=== PATIENT | female | born 1965 | race Two or more races ===

== ENCOUNTER 2024-04-19 12:21 | Inpatient (IN) | payer OTHER ==
[~2024-04-19] VITALS: Ht 152.4 cm; Wt 159.7 kg
[~2024-04-19 12:21] MED LIST: ANTIVERT25 M1 PO; CEFADROXIL500 MG PO; CIPRO500 MG PO; IRBESARTAN75 MG PO; JANUMET 50-501 UDTAB PO; LIPO-FLAVONOID1 EACH PO; LOMOTIL; MECLIZINE HCL25 MG PO; NORVASC10 MG PO; OZEMPIC2 MG/0.75 SUBCUTANEO; SYNTHROID125 MCG PO; SYNTHROID137 MCG PO; SYNTHROID75 MCG; TENORMIN25 MG; ULTRACET PO
[2024-04-19] MEDS ORDERED: GLIPIZIDE XL5 MG (13:20)
[2024-04-19] MEDS ORDERED: TRIJARDY XR 101 EACH PO (13:20)
[2024-04-19] MEDS ORDERED: PROTONIX20 MG PO (13:21)
[2024-04-19] MEDS ORDERED: CARAFATE1 GM (13:21)
--- NOTE | 2024-04-19 13:22 | NUR ---
PTE REFIEFE TOS Y [facility] DESDE HAC VARIOS RENE. SE LE KADIE S/V Y SE UBICA EN ABHINAV DE ESPERA.
[2024-04-19] MEDS ORDERED: IPRATROPIUM/ALBUTEROL SULFATE 3 ML AMPUL.NEB IH SCH (16:30)
--- NOTE | 2024-04-19 16:35 | NUR ---
SE ORIENTA PTE,REFIERE ACEPTAR. SE COELCTAN MUESTRAS DE LAB BAJO MEDIDAS ASEPTICAS. PEND A REALIZAR TERAPIAS
[2024-04-19 16:43] LABS: HEMATOCRIT 43.3 % (36.0-45.00); HEMOGLOBIN 14.9 g/dL (12.0-15.00); MEAN CORPUSCULAR HEMOGLOBIN 31.1 pg (27.00-32.0); MEAN CORPUSCULAR HGB CONC 34.5 g/dl (32.0-36.0); PLATELET COUNT 276 K/uL (150-450); RED CELL DISTRIBUTION WIDTH 13.9 % (11.5-14.5)
[2024-04-19] MEDS ORDERED: IPRATROPIUM/ALBUTEROL SULFATE 3 ML AMPUL.NEB IH ONE (17:29)
[2024-04-19] MEDS ORDERED: GILTUSS COUGH-118 M1 PO (19:27)
[2024-04-19] MEDS ORDERED: METHYLPREDNISOLONE SOD SUCC 125 MG VIAL IV ONE (19:45)
[2024-04-19] MEDS ORDERED: MAGNESIUM SULFATE IN WATER 50 ML IV ONE (19:45)
[2024-04-19] MEDS ORDERED: METHYLPREDNISOLONE SOD SUCC 125 MG VIAL ONE (20:11)
--- NOTE | 2024-04-19 20:30 | NUR ---
SE CANALIZA Y SE ADMINISTRA MEDS JAI ORDEN MEDICA
[2024-04-19] MEDS ORDERED: MONTELUKAST SODIUM 10 MG TABLET PO SCH (20:50)
[2024-04-19] MEDS ORDERED: 0.9 % SODIUM CHLORIDE 1,000 ML IV SCH (21:00)
[2024-04-19] MEDS ORDERED: IPRATROPIUM BROMIDE 0.5 MG/2.5 ML AMPUL.NEB IH SCH (21:00)
[2024-04-19] MEDS ORDERED: DEXTROSE 50 % IN WATER 0.5 G/ML DISP.SYRIN IV PRN (21:00)
[2024-04-19] MEDS ORDERED: INSULIN LISPRO 1,000 UNIT/10 ML UNITS SUBCUTANEO PRN (21:00)
[2024-04-19] MEDS ORDERED: LEVALBUTEROL HCL 1.25 MG/3 ML SOLUTION IH SCH (21:00)
[2024-04-19] MEDS ORDERED: ACETAMINOPHEN 500 MG GEL..CAP PO PRN (21:00)
[2024-04-19] MEDS ORDERED: GUAIFEN/DEXTROMETHORPHAN/PE 10 ML BLIST.PACK PO SCH (21:00)
[2024-04-19] MEDS ORDERED: GUAIFEN/DEXTROMETHORPHAN/PE 10 ML BLIST.PACK PO ONE (21:04)
[2024-04-19] MEDS ORDERED: LEVALBUTEROL HCL 1.25 MG/3 ML SOLUTION IH ONE (21:39)
[2024-04-19] MEDS ORDERED: IPRATROPIUM BROMIDE 0.5 MG/2.5 ML AMPUL.NEB IH ONE (21:39)
[2024-04-19 22:07] LABS: URINE APPEARANCE Cloudy; URINE BILIRRUBIN Negative (NEGATIVE); URINE BLOOD Negative; URINE COLOR Yellow; URINE KETONE Negative (NEGATIVE); URINE LEUKOCYTE Negative; URINE NITRATE Negative; URINE PROTEIN Negative (NEGATIVE); URINE UROBILINOGEN 0.2 E.U./dl
[2024-04-19 22:10] LABS: URINE BACTERIA 253.2 uL (0.0-1933); URINE EPITHELIAL CELLS 45.5 uL (0.0-38.8); URINE RBC 4.4 uL (0.0-20.8); URINE WBC 68.5 uL (0.0-23.2)
[2024-04-19 22:14] LABS: ABG PH 7.418 (7.35-7.45); ABG PO2 81.1 mmHg (80-100); ABG pCO2 38.2 mmHg (35-45); BASE EXCESS -0.1 mmol/l; BICARBONATE 24.1 mmol/l (23-25); SaO2 96.1 %; Tco2 25.3 mmol/l
[2024-04-19 22:14] LABS: URINE GLUCOSE >=1000 MG/DL (NEGATIVE)
[2024-04-19 22:15] LABS: allen test SATISFACTORY; o2 21 %; puncture site RADIAL LEFT
[2024-04-19 22:23] LABS: INR < 0.93; PARTIAL THROMBOPLASTIN TIME 23.3 SECONDS (22.0-34.0); PROTHROMBIN TIME 9.6 SECONDS (9.0-11.5)
[2024-04-19 22:26] LABS: ALBUMIN 3.6 gm/dL (3.4-5.0); BILIRUBIN TOTAL 0.55 mg/dL (0.3-1.2); CALCIUM 9.4 mg/dL (8.5-10.1); CREATININE SERUM 0.83 mg/dL (0.55-1.02); GFR 69.89; GLOBULINA 3.3 G/DL (2.4-3.5); POTASSIUM 3.35 mEq/L (3.5-5.1); TOTAL PROTEIN 6.9 gm/dL (6.4-8.2)
[2024-04-19 23:41] VITALS: BP 128/77; O2SAT 95
[2024-04-20] MEDS ORDERED: METHYLPREDNISOLONE SOD SUCC 40 MG VIAL IV SCH ×2 (01:00→18:00)
[2024-04-20] MEDS ORDERED: LEVOTHYROXINE SODIUM 125 MCG TABLET PO SCH (06:00)
[2024-04-20] MEDS ORDERED: AZITHROMYCIN 500 MG VIAL IV ONE (08:39)
[2024-04-20] MEDS ORDERED: ENOXAPARIN SODIUM 40 MG/0.4 ML SYRINGE SUBCUTANEO SCH (09:00)
[2024-04-20] MEDS ORDERED: CEFTRIAXONE SODIUM 2,000 MG in 0.9 % SODIUM CHLORIDE 100 ML IV SCH (09:00)
[2024-04-20] MEDS ORDERED: FAMOTIDINE/PF 20 MG in 0.9 % SODIUM CHLORIDE 8 ML IV PUSH SCH (09:00)
[2024-04-20] MEDS ORDERED: AZITHROMYCIN 500 MG in DEXTROSE 5 % IN WATER 250 ML IV SCH (09:00)
[2024-04-20] MEDS ORDERED: AZITHROMYCIN 500 MG VIAL IV SCH (09:00)
[2024-04-20] MEDS ORDERED: IRBESARTAN 75 MG TABLET PO SCH (09:00)
[2024-04-20 09:01] VITALS: BP 135/72; O2SAT 98
[2024-04-20] MEDS ORDERED: ONDANSETRON HCL 2 MG/ML VIAL IV PRN (14:30)
[2024-04-20 17:04] VITALS: BP 170/76; O2SAT 97
[2024-04-20] MEDS ORDERED: INSULIN GLARGINE,HUM.REC.ANLOG 1,000 UNITS/10 ML UNITS SUBCUTANEO STA (21:06)
[2024-04-21 02:02] VITALS: BP 152/81; O2SAT 95
[2024-04-21] MEDS ORDERED: INSULIN LISPRO 1,000 UNIT/10 ML UNITS SUBCUTANEO STA (08:07)
[2024-04-21 08:14] LABS: CALCIUM 8.9 mg/dL (8.5-10.1); CREATININE SERUM 0.69 mg/dL (0.55-1.02); GFR 86.49; POTASSIUM 4.21 mEq/L (3.5-5.1)
[2024-04-21 08:18] LABS: TSH 0.024 uIU/mL (0.358-3.74)
[2024-04-21] MEDS ORDERED: INSULIN GLARGINE,HUM.REC.ANLOG 1,000 UNITS/10 ML UNITS SUBCUTANEO SCH ×2 (09:00→21:00)
[2024-04-21 10:26] VITALS: BP 122/68; O2SAT 96
[2024-04-21] MEDS ORDERED: INSULIN LISPRO 1,000 UNIT/10 ML UNITS SUBCUTANEO SCH (12:00)
[2024-04-21 17:11] VITALS: BP 130/69; O2SAT 96
[2024-04-22 00:58] VITALS: BP 150/80; O2SAT 96
[2024-04-22 08:00] VITALS: BP 117/67; BP 160/80; O2SAT 97; O2SAT 98
[2024-04-22] MEDS ORDERED: METHYLPREDNISOLONE SOD SUCC 40 MG VIAL IV SCH (12:00)
[2024-04-22] MEDS ORDERED: BENZONATATE 200 MG CAPSULE PO PRN (16:15)
[2024-04-22 17:16] VITALS: BP 174/91; O2SAT 96
[2024-04-22] MEDS ORDERED: LEVALBUTEROL HCL 1.25 MG/3 ML SOLUTION IH SCH (21:00)
[2024-04-22] MEDS ORDERED: INSULIN GLARGINE,HUM.REC.ANLOG 1,000 UNITS/10 ML UNITS SUBCUTANEO SCH (21:00)
[2024-04-23 02:45] VITALS: BP 205/101; O2SAT 96
[2024-04-23 08:49] VITALS: BP 135/75; O2SAT 98
[2024-04-23] MEDS ORDERED: METHYLPREDNISOLONE SOD SUCC 40 MG VIAL IV SCH (13:00)
[2024-04-23 15:35] VITALS: BP 147/84; O2SAT 98
[2024-04-23] MEDS ORDERED: METHYLPREDNISOLONE SOD SUCC 125 MG VIAL IV SCH (21:00)
[2024-04-24 02:49] VITALS: BP 145/75; O2SAT 98
[2024-04-24 10:36] VITALS: BP 175/83
[2024-04-24 18:29] VITALS: BP 199/86
[2024-04-25 02:26] VITALS: BP 146/79; O2SAT 97
[2024-04-25] MEDS ORDERED: INSULIN LISPRO 1,000 UNIT/10 ML UNITS SUBCUTANEO SCH (08:00)
[2024-04-25] MEDS ORDERED: IRBESARTAN 150 MG TABLET PO SCH (09:00)
[2024-04-25 09:25] VITALS: BP 157/85; O2SAT 98
[2024-04-25] MEDS ORDERED: CLOTRIMAZOLE 10 MG TROCHE MM SCH (12:00)
[2024-04-25] MEDS ORDERED: METHYLPREDNISOLONE SOD SUCC 40 MG VIAL IV SCH ×2 (13:00→21:00)
[2024-04-25 19:01] VITALS: BP 170/77
[2024-04-26 01:59] VITALS: BP 141/75
[2024-04-26 08:41] VITALS: BP 144/77
[2024-04-26] MEDS ORDERED: INSULIN LISPRO 1,000 UNIT/10 ML UNITS SUBCUTANEO SCH (12:00)
[2024-04-26 19:29] VITALS: BP 142/82; O2SAT 97
[2024-04-26] MEDS ORDERED: INSULIN GLARGINE,HUM.REC.ANLOG 1,000 UNITS/10 ML UNITS SUBCUTANEO SCH (21:00)
[2024-04-27 00:48] VITALS: BP 200/100; O2SAT 98
[2024-04-27 00:57] VITALS: BP 158/83; O2SAT 98
[2024-04-27 08:38] VITALS: BP 149/79
[2024-04-27] MEDS ORDERED: METHYLPREDNISOLONE SOD SUCC 40 MG VIAL IV SCH (17:00)
[2024-04-27 19:02] VITALS: BP 148/74
[2024-04-27] MEDS ORDERED: INSULIN GLARGINE,HUM.REC.ANLOG 1,000 UNITS/10 ML UNITS SUBCUTANEO SCH (21:00)
[2024-04-27] MEDS ORDERED: BUDESONIDE 0.5 MG/2 ML AMPUL.NEB IH SCH (21:00)
[2024-04-28 02:17] VITALS: BP 146/90; O2SAT 98
[2024-04-28] MEDS ORDERED: INSULIN LISPRO 1,000 UNIT/10 ML UNITS SUBCUTANEO SCH (08:00)
[2024-04-28 10:04] VITALS: BP 118/69; O2SAT 97
[2024-04-28 12:56] LABS: ABG PH 7.515 (7.35-7.45); ABG pCO2 36.4 mmHg (35-45)
[2024-04-28 12:58] LABS: ABG PO2 59.8 mmHg (80-100); BASE EXCESS 5.7 mmol/l; BICARBONATE 28.7 mmol/l (23-25); SaO2 93.6 %; Tco2 29.8 mmol/l; o2 21 %
[2024-04-28 13:04] LABS: allen test SATISFACTORY; puncture site RADIAL RIGHT
[2024-04-28] MEDS ORDERED: METHYLPREDNISOLONE SOD SUCC 125 MG VIAL IV SCH (17:00)
[2024-04-28] MEDS ORDERED: DOCUSATE CALCIUM 240 MG CAPSULE PO SCH (17:00)
[2024-04-28 17:53] VITALS: BP 151/85; O2SAT 96
[2024-04-29 01:17] VITALS: BP 144/89; O2SAT 99
[2024-04-29] MEDS ORDERED: CEFTRIAXONE SODIUM 2,000 MG in 0.9 % SODIUM CHLORIDE 100 ML IV SCH (09:06)
[2024-04-29 10:10] VITALS: BP 148/80; O2SAT 99
[2024-04-29] MEDS ORDERED: INSULIN LISPRO 1,000 UNIT/10 ML UNITS SUBCUTANEO SCH (12:00)
[2024-04-29] MEDS ORDERED: PANTOPRAZOLE SODIUM 40 MG TABLET.DR PO STA (12:50)
[2024-04-29] MEDS ORDERED: METHYLPREDNISOLONE SOD SUCC 40 MG VIAL IV SCH (17:00)
[2024-04-29 18:15] VITALS: BP 142/86; O2SAT 98
[2024-04-29] MEDS ORDERED: INSULIN GLARGINE,HUM.REC.ANLOG 1,000 UNITS/10 ML UNITS SUBCUTANEO SCH (21:00)
[2024-04-30 01:07] VITALS: BP 127/85; O2SAT 97
[2024-04-30 08:56] VITALS: BP 126/72; O2SAT 98
[2024-04-30] MEDS ORDERED: PANTOPRAZOLE SODIUM 40 MG TABLET.DR PO SCH (09:00)
== END 2024-04-30 13:01 | disposition home or self-care (01) | DRG 202 ==
LOC: ER 12:23 → MEDJ 20:53
PROVIDERS: General Practice; Internal Medicine; Internal Medicine Endocrinology, Diabetes & Metabolism; Preventive Medicine Public Health & General Preventive Medicine; ADMIT Internal Medicine; ATTEND Internal Medicine
PROC: BW24ZZZ Computerized Tomography (CT Scan) of Chest and Abdomen (ICD-10-PCS; principal; 2024-04-23)
DX: J45.41 Moderate persistent asthma with (acute) exacerbation (principal); J44.1 Chronic obstructive pulmonary disease with (acute) exacerbation; R09.02 Hypoxemia; E03.9 Hypothyroidism, unspecified; I10 Essential (primary) hypertension; E11.65 Type 2 diabetes mellitus with hyperglycemia; Z79.4 Long term (current) use of insulin

== ENCOUNTER 2024-07-05 13:29 | Outpatient (CLI) | payer OTHER ==
[~2024-07-05 13:29] MED LIST changes: +CARAFATE1 GM; +GILTUSS COUGH-118 M1 PO; +GLIPIZIDE XL5 MG; +PROTONIX20 MG PO; +TRIJARDY XR 101 EACH PO
== END 2024-07-05 13:34 | disposition home or self-care (01) ==
LOC: TOM 13:29
PROVIDERS: ATTEND Internal Medicine Pulmonary Disease
DX: R06.02 Shortness of breath (principal)

== ENCOUNTER → 2024-09-19 | Emergency (ER) | payer OTHER ==
[~2024-09-19] VITALS: Ht 157.5 cm; Wt 81.6 kg
[~2024-09-19] MED LIST changes: +CEFTRIAXONE SODIUM 1,000 MG VIAL IM STA; +CEFTRIAXONE SODIUM 1,000 MG VIAL ONE; +CRESTOR40 MG; +DIPHTH,PERTUSS(ACELL),TET VAC 0.5 ML SYRINGE IM ONE; +GLIMEPIRIDE1 M1 PO; +TETANUS & DIPHTHERIA TOX,ADULT 0.5 ML VIAL IM STA; +[UNRECOGNIZED DRUG - OTHER]; +[UNRECOGNIZED DRUG - OTHER]
== END | disposition home or self-care (01) ==
LOC: ER 18:03
DX: S81.852A Open bite, left lower leg, initial encounter (principal); S81.851A Open bite, right lower leg, initial encounter; W55.01XA Bitten by cat, initial encounter; Y93.89 Activity, other specified; Y92.098 Other place in other non-institutional residence as the place of occurrence of the external cause; Y99.8 Other external cause status
CPT/HCPCS: 90471; 90714; J1670

== ENCOUNTER 2024-11-29 14:55 | Emergency (ER) | payer OTHER ==
[~2024-11-29] VITALS: Ht 154.9 cm; Wt 62.1 kg
[~2024-11-29 14:55] MED LIST changes: -CEFTRIAXONE SODIUM 1,000 MG VIAL IM STA; -CEFTRIAXONE SODIUM 1,000 MG VIAL ONE; -DIPHTH,PERTUSS(ACELL),TET VAC 0.5 ML SYRINGE IM ONE; -TETANUS & DIPHTHERIA TOX,ADULT 0.5 ML VIAL IM STA
[2024-11-29] MEDS ORDERED: KETOROLAC TROMETHAMINE 60 MG VIAL IM ONE (16:30)
[2024-11-29 16:36] LABS: BASO % 0.8 % (0.1-1.2); EOS # 0.23 (0.04-0.54); EOS % 3.0 % (0.7-7.0); LYMPH # 1.94 (1.18-3.74); LYMPH % 25.6 % (19.3-53.1); MEAN PLATELET VOLUME 9.50 fl (9.4-12.4); MONO # 0.44 (0.24-0.82); MONO % 5.8 % (4.7-12.5); NEUT # 4.89 (1.56-6.13); NEUT % 64.5 % (34.0-71.1); RED CELL DISTRIBUTION WIDTH 14.3 % (11.6-14.4)
[2024-11-29 16:46] LABS: URINE APPEARANCE Cloudy; URINE BILIRRUBIN Negative (NEGATIVE); URINE BLOOD Negative; URINE COLOR Yellow; URINE KETONE Negative (NEGATIVE); URINE LEUKOCYTE Small; URINE NITRATE Negative; URINE PROTEIN Negative (NEGATIVE); URINE UROBILINOGEN 0.2 E.U./dl
[2024-11-29 16:50] LABS: URINE BACTERIA 1892.2 uL (0.0-1933); URINE EPITHELIAL CELLS 47.9 uL (0.0-38.8); URINE RBC 20.2 uL (0.0-20.8); URINE WBC 123.8 uL (0.0-23.2)
[2024-11-29 16:57] LABS: INR 0.96
[2024-11-29 17:02] LABS: ALT/SGPT 24.0 U/L (12-78); AST/SGOT 9.0 U/L (15-37); BILIRUBIN TOTAL 0.61 mg/dL (0.3-1.2); BUN CREA RATIO 19.0 (7.0-25.0); CREATININE SERUM 0.77 mg/dL (0.55-1.02); GFR 76.21; GLOBULINA 3.1 G/DL (2.4-3.5); GLUCOSE FASTING 124.0 mg/dL (65-100); OSMOLALITY SERUM 283.0 MOSM/KG (275-295)
[2024-11-29 17:10] LABS: URINE CAST 0.29 uL (0.0-1.40); URINE GLUCOSE >=1000 MG/DL (NEGATIVE)
[2024-11-29] MEDS ORDERED: PEPCID AC20 MG PO (17:47)
[2024-11-29] MEDS ORDERED: BACTRIM DS TAB1 EACH PO (17:47)
[2024-11-29] MEDS ORDERED: LEVSIN/SL0.125 MG SL (17:47)
== END 2024-11-29 18:14 | disposition home or self-care (01) ==
LOC: ER 15:05
PROVIDERS: General Practice
DX: R10.32 Left lower quadrant pain (principal); Z98.890 Other specified postprocedural states; E11.9 Type 2 diabetes mellitus without complications; Z79.84 Long term (current) use of oral hypoglycemic drugs; I10 Essential (primary) hypertension; E03.9 Hypothyroidism, unspecified; Z87.09 Personal history of other diseases of the respiratory system